=== PATIENT | male | born 2000 | race Caucasian/White ===

== ENCOUNTER 2024-05-19 17:43 | Emergency (ER) | payer OTHER ==
[2024-05-19 17:57] VITALS: O2SAT 97
--- NOTE | 2024-05-19 17:58 | ERPHSYRPT ---
- History of Present Illness Time Seen by Provider: 05/19/24 17:58 Source: patient Exam Limitations: no limitations Patient Subjective Stated Complaint: C/O "possible spider bite" to back of neck that occurred approx 20 minutes ago. Patient indicates that he killed a spider on the back of his neck but is unsure if it bit him or not. States there is a stingy sensation where the spider had been. Triage Nursing Assessment: Patient ambulated back to ER. He is alert and oriented. He has a sunburn. Sunburn present to back of neck where stinging is reported by patient. No punctures or breaks in skin noted at this time. A small, pinpoint, raised area is noted. Physician History: The patient presented to the clinic after being bitten by a spider on the back of his neck approximately 25 minutes prior to the visit. The spider was described as brown, raising concerns about a potential brown recluse spider bite. The patient reported a stinging sensation at the site of the bite. There were no other symptoms or health problems reported at the time of the visit. The patient has a family history of a significant reaction to a spider bite, with his mother having experienced a severe reaction to a bite on her thigh. The patient was concerned about the potential for a similar reaction, particularly given the location of the bite on his neck. Timing/Duration: hour(s) (0.5) Quality: painful Severity: mild Location: neck Possible Causes: other (spider bite) Associated Symptoms: denies symptoms Allergies/Adverse Reactions: No Known Drug Allergies Allergy (Verified 05/19/24 17:47) Home Medications: No Reportable Medications [No Reported Medications] 05/19/24 [History] Hx Tetanus, Diphtheria Vaccination/Date Given: Yes Immunizations Up to Date: Yes Travel Risk - International Travel Have you traveled outside of the country in past 3 weeks: No - Emerging Infectious Disease Are you exhibiting symptoms associated with any current EIDs: No - Review of Systems All Other Systems: Reviewed and Negative - Past Medical History Pertinent Past Medical History: No - Past Surgical History Past Surgical History: Yes Male Surgical History: Testicular Surgery Other Surgical History: wisdom teeth removed - Social History Smoking Status: Never smoker Exposure to second hand smoke: No Drug Use: none - Social Determinants of Health Will the patient participate in the screening: Declined to provide - Nursing Vital Signs Nursing Vital Signs: Initial Vital Signs Pulse Rate 72 05/19/24 17:49 Respiratory Rate 18 05/19/24 17:49 Blood Pressure 136/73 05/19/24 17:49 O2 Sat by Pulse Oximetry 97 05/19/24 17:49 Pain Scale Pain Intensity 2 - Physical Exam General Appearance: no apparent distress Neck Exam: other (sunburnt skin upper shoulders, neck, no entry point noted, no drainage. ) SpO2 Interpretation: normal SpO2: 97 O2 Delivery: Room Air - Course Nursing assessment & vital signs reviewed: Yes Ordered Tests: Medication Summary Discontinued Medications Generic Name Dose Route Start Last Admin Trade Name Freq PRN Reason Stop Dose Admin Bacitracin Zinc 0.9 each 05/19/24 18:03 05/19/24 18:08 Bacitracin Packet 1 Each Pckt TP 05/19/24 18:04 0.9 each STAT ONE Administration Bacitracin Zinc Confirm 05/19/24 18:07 Bacitracin Packet 1 Each Pckt Administered 05/19/24 18:08 Dose 1 each .ROUTE .STK-MED ONE - Progress Progress: unchanged Counseled pt/family regarding: diagnosis Medical Desision Making - Diagnostic Testing Diagnostic test were ordered, analyzed, and reviewed by me: No - Risk of complications Low Risk: Low risk of morbidity from additional dx testing or treatment - Departure Departure Disposition: Home Clinical Impression: Spider bite Condition: Good Critical Care Time: No Referrals: LINDA MCCRAY DO [Primary Care Provider] - Follow up/PCP as directed Instructions: Insect Bites and Stings (DC)
[2024-05-19] MEDS ORDERED: BACIGUENT PACKET ONE (18:07)
[2024-05-19] MEDS: BACIGUENT PACKET TP ONE (18:08)
[2024-05-19 18:19] VITALS: BP 146/86; PULSE 74; RESP 17; TEMP 98
== END 2024-05-19 18:15 | disposition home or self-care (01) ==
LOC: ED 17:43
DX: S10.86XA Insect bite of other specified part of neck, initial encounter (principal); W57.XXXA Bitten or stung by nonvenomous insect and other nonvenomous arthropods, initial encounter
CPT/HCPCS: 99281; A9270-GY